=== PATIENT | female | born 2000 | race African-American/Black ===

== ENCOUNTER 2020-09-09 11:10 | Emergency (ER) | payer OTHER, SELFPAY ==
[2020-09-09] VITALS (9 sets, daily range): BP systolic 102–130; BP diastolic 55–73; PULSE 59–92; RESP 18; TEMP 36.8; O2SAT 96–100; BMI 27.4
--- NOTE | 2020-09-09 11:12 | ED.GENADULT ---
HPI - General Adult General Chief complaint: Abdominal Pain Stated complaint: abdominal pain right side for 1 week Time Seen by Provider: 09/09/20 11:12 History of Present Illness HPI narrative: 20-year-old woman with no significant medical history presents with a week of right upper quadrant abdominal pain. She reports no fevers, no vomiting, no diarrhea or change to the color of her stools. She states that the pain is intermittent, does not seem to be related to food in any way and when she has waves of severe pain she has trouble taking a deep breath or moving. She is. For the pain will naya and it is just achy sore. LMP was on 09/03 and was normal. She reports no vaginal discharge or dysuria. No deep pelvic pain. Related Data Allergies Allergy/AdvReac Type Severity Reaction Status Date / Time No Known Drug Allergies Allergy Verified 09/09/20 11:23 Review of Systems Review of Systems Narrative: Remainder of review of systems including constitutional, ENT, cardiovascular, respiratory, GI, , musculoskeletal, skin, neurologic and psychiatric systems reviewed and are unremarkable except as noted in HPI. Patient History Medical History Healthy adult Social History Smoking Status: Never smoker Exam Narrative Exam Narrative: General: Healthy appearing, in no acute distress. Able to give a complete and coherent history. Well-nourished well-developed HEENT: Moist mucous membranes, normal sclera with reactive pupils, Neck: No JVD, supple Respiratory: Lungs are clear to auscultation, no wheezing no rales no rhonchi. Full and symmetrical air movement Cardiac: Regular rate and rhythm no murmurs no bruits Abdomen: Soft, mildly tender in the right upper quadrant without rebound or guarding, good bowel tones, no flank pain Skin: Warm and dry, no rashes Neurologic: Grossly neurologically intact with no obvious asymmetries or abnormalities Extremities: No trauma, well perfused Psych: Cooperative, appropriate insight and affect Initial Vital Signs Initial Vital Signs: Vital Signs Temperature 98.2 F 09/09/20 11:20 Pulse Rate 92 H 09/09/20 11:20 Respiratory Rate 18 09/09/20 11:20 Blood Pressure 130/73 09/09/20 11:20 Pulse Oximetry 98 09/09/20 11:20 Course Orders Ordered: ED Orders 09/09/20 11:35 Complete Blood Count AUTO DIFF Stat Comprehensive Metabolic Panel Stat Lipase Stat 09/09/20 12:08 CT chest abd pel w con Stat Discontinued Medications Magnesium Citrate (Magnesium Citrate 300 Ml Solution) 300 ml PO NOW ONE Stop: 09/09/20 15:05 Last Admin: 09/09/20 15:18 Dose: 300 ml Documented by: LALITA Vital Signs Vital signs: Vital Signs - 8 hr 09/09/20 11:20 09/09/20 12:14 09/09/20 12:30 Temperature 98.2 F Pulse Rate 92 H 83 61 Respiratory Rate 18 Blood Pressure 130/73 Pulse Oximetry 98 96 99 09/09/20 13:00 09/09/20 13:30 09/09/20 13:49 Temperature Pulse Rate 71 59 L 62 Respiratory Rate Blood Pressure 108/55 L Pulse Oximetry 100 100 99 09/09/20 14:00 09/09/20 14:30 09/09/20 15:00 Temperature Pulse Rate 59 L 67 64 Respiratory Rate Blood Pressure 103/57 L 102/60 104/57 L Pulse Oximetry 99 98 100 Medical Decision Making Medical Records Medical records reviewed: Yes I reviewed the patient's medical records. Lab Data Lab results reviewed: Yes I reviewed the patient's lab results. Result diagrams: 09/09/20 11:35 09/09/20 11:35 Labs: Lab Results 09/09/20 09/09/20 Range/Units 11:35 11:35 WBC 7.1 (4.5-11.0) X10^3/uL RBC 4.16 (4.0-5.2) X10^6/uL Hgb 12.7 (12.0-16.0) g/dL Hct 37.8 (36-46) % MCV 90.9 (80-100) fL MCH 30.5 (26-34) PG MCHC 33.6 (30-36) % RDW 12.8 (11.6-14.8) % Plt Count 240 (150-400) X10^3/uL Neut % (Auto) 60.8 (50-75) % Lymph % (Auto) 31.1 (25-40) % [place] % (Auto) 6.0 (3-14) % Eos % (Auto) 1.5 L (2-4) % Baso % (Auto) 0.6 (0-2) % Neut # (Auto) 4300 (1526-0460) /uL Lymph # (Auto) 2200 (0521-6860) /uL [place] # (Auto) 400 (0-900) /uL Eos # (Auto) 100 (0-450) /uL Baso # (Auto) 0 (0-100) /uL Sodium 137 (137-145) mmol/L Potassium 4.0 (3.4-5.1) mmol/L Chloride 106 (98-107) mmol/L Carbon Dioxide 26 (22-32) mmol/L BUN 14 (7-17) mg/dL Creatinine 0.69 (0.52-1.04) mg/dL Estimated GFR > 60.0 (>60) mL/min BUN/Creatinine Ratio 20.3 (6-22) Glucose 92 (70-100) mg/dL Calcium 9.5 (8.4-10.2) mg/dL Total Bilirubin 0.8 (0.2-1.3) mg/dL AST 23 (14-36) IU/L ALT 16 (<35) IU/L Alkaline Phosphatase 68 (38-126) U/L Total Protein 7.9 (6.3-8.2) g/dL Albumin 4.4 (3.5-5.0) g/dL Globulin 3.5 (1.7-4.1) g/dL Albumin/Globulin Ratio 1.3 (1.0-2.8) Lipase 41 (23-300) U/L Point of Care Testing Test Results Negative Urine Dip Bedside Urine Glucose Negative Bedside Urine Bilirubin - Negative Bedside Urine Ketone - Negative Urine Specific [place] 1.025 Bedside Urine Occult Blood - Negative Bedside Urine pH 6.0 Bedside Urine Protein - Negative Bedside Urine Urobilinogen - Negative Bedside Urine Nitrite - Negative Bedside Urine Leukocytes - Negative Esterase Point of care testing: Point of Care Testing Test Results Negative Urine Dip Bedside Urine Glucose Negative Bedside Urine Bilirubin - Negative Bedside Urine Ketone - Negative Urine Specific [place] 1.025 Bedside Urine Occult Blood - Negative Bedside Urine pH 6.0 Bedside Urine Protein - Negative Bedside Urine Urobilinogen - Negative Bedside Urine Nitrite - Negative Bedside Urine Leukocytes - Negative Esterase Imaging Data Ultrasound and x-ray 08/30/2020 Radhika Gen: Radiologist's Impression: Chest x-ray: No acute cardiopulmonary disease Focused abdominal ultrasound: No evidence of cholelithiasis or cholecystitis. Mild nonspecific pelvocaliectasis of the right renal collecting system MDM Narrative Medical decision making narrative: Workup from Radhika Dinero on August 30 is reviewed. Labs chest x-ray and ultrasound were unrevealing. Given the fact that her pain has persisted and resulted in a 2nd emergency room visit will moved to CT scan of the abdomen. Discharge Plan Departure Patient Disposition: Home Clinical Impression: Abdominal pain Qualifiers: Abdominal location: right upper quadrant Qualified Code(s): R10.11 - Right upper quadrant pain Instructions: DI for Abdominal Pain-Adult Activity Restrictions/Additional Instructions: Thank you for coming in today Your workup was entirely reassuring. Your blood work was normal and the CT scan of your chest, abdomen and pelvis did not show any evidence of pneumonia, gallbladder abnormalities, pancreatitis, kidney abnormalities, bowel obstructions, abnormal pelvic findings or other life-threatening findings. The CT scan does have a moderate amount of stool in it and it may be that constipation is a part of your recurrent abdominal pain. I am going to suggest that you drink a bottle of magnesium citrate and see if clearing out your bowels helps relieve some of your symptoms. If it does not, the next step in your workup will be to follow-up with your primary care physician. You may benefit from further evaluation of your gallbladder with an outpatient nuclear medicine study (HIDA scan) to evaluate the function of your gallbladder. If you have new or worsening symptoms, please feel free to return to the emergency department for further evaluation.
[2020-09-09 11:46] LABS: Add Manual Diff / Slide Review NO; Basophils Absolute Auto 0 /uL (0-100); Basophils Percent Auto 0.6 % (0-2); Eosinophils Absolute Auto 100 /uL (0-450); Eosinophils Percent Auto 1.5 % (2-4); Hematocrit 37.8 % (36-46); Hemoglobin 12.7 g/dL (12.0-16.0); Lymphocytes Absolute Auto 2200 /uL (1100-4500); Lymphocytes Percent Auto 31.1 % (25-40); Mean Corpuscular HGB Conc 33.6 % (30-36); Mean Corpuscular Hemoglobin 30.5 PG (26-34); Mean Corpuscular Volume 90.9 fL (80-100); Monocytes Absolute Auto 400 /uL (0-900); Neutrophils Absolute Auto 4300 /uL (1500-7000); Neutrophils Percent Auto 60.8 % (50-75); Platelet Count 240 X10^3/uL (150-400); Red Blood Cell Count 4.16 X10^6/uL (4.0-5.2); Red Cell Distribution Width 12.8 % (11.6-14.8); White Blood Cell Count 7.1 X10^3/uL (4.5-11.0)
[2020-09-09 12:00] LABS: Alanine Aminotransferase 16 IU/L (<35); Albumin 4.4 g/dL (3.5-5.0); Albumin Globulin Ratio 1.3 (1.0-2.8); Alkaline Phosphatase 68 U/L (38-126); Aspartate Aminotransferase 23 IU/L (14-36); BUN Creatinine Ratio 20.3 (6-22); Bilirubin Total 0.8 mg/dL (0.2-1.3); Blood Urea Nitrogen 14 mg/dL (7-17); Calcium 9.5 mg/dL (8.4-10.2); Carbon Dioxide 26 mmol/L (22-32); Chloride 106 mmol/L (98-107); Estimated Glomerular Filt Rate > 60.0 mL/min (>60); Globulin 3.5 g/dL (1.7-4.1); Glucose 92 mg/dL (70-100); HEMOLYSIS < 15 (0-50); Lipase 41 U/L (23-300); Sodium 137 mmol/L (137-145); Total Protein 7.9 g/dL (6.3-8.2)
--- NOTE | 2020-09-09 12:08 | DI.CT.S_ITS ---
PROCEDURE: CT CHEST ABD PEL W CON INDICATIONS: RUQ abdominal pain TECHNIQUE: After the administration of intravenous contrast, 5 mm thick sections acquired from the lung apices to the symphysis. 5 mm coronal and sagittal reformats were performed, with additional 7 mm MIP reformats through the lungs. For radiation dose reduction, the following was used: automated exposure control, adjustment of mA and/or kV according to patient size. COMPARISON: None. FINDINGS: Image quality: Excellent. CHEST: Lungs and pleura: No acute airspace opacities. No pleural effusions or pneumothorax. Central and peripheral airways appear patent and normal in caliber. Mediastinum: Heart size is normal. No pericardial effusion. No mediastinal or hilar adenopathy by size criteria. Thoracic aorta and central pulmonary arteries are normal in size. Esophagus is normal in caliber. No hiatal hernia. Chest wall: No axillary or supraclavicular adenopathy by size criteria. Thyroid gland demonstrates no significant abnormality. ABDOMEN: Solid organs: Liver is normal in size and enhancement. Gallbladder wall is not thickened. Biliary system is non dilated. Pancreas enhances normally. Spleen is normal in size and enhancement. No adrenal nodules. Kidneys demonstrate normal size and enhancement, without hydronephrosis. Peritoneum and bowel: Bowel loops demonstrate normal wall thickness and caliber. No free fluid or air. Nodes and vessels: No retroperitoneal or mesenteric adenopathy by size criteria. Aorta and inferior vena cava are normal in size. Miscellaneous: A mild periumbilical hernia is seen, containing fat. PELVIS: Genitourinary: Bladder wall thickness is normal. The uterus appears normal for age. No adnexal masses are seen. Miscellaneous: No inguinal hernias or adenopathy. Bones: No suspicious bony lesions. No vertebral body compression fractures. IMPRESSION: No imaging explanation is found for this patient's presenting symptoms. No significant gallbladder abnormality is seen by CT. There is no biliary dilatation. Normal appearing right kidney, without hydronephrosis. If it would be helpful for clinical management decision making, please consider a dedicated right upper quadrant ultrasound for further evaluation. Incidental note is made of: Fat containing periumbilical hernia Dictated by: Johny Roberson M.D. on 09/09/2020 at 12:01 Approved by: Johny Roberson M.D. on 09/09/2020 at 12:04
--- NOTE | 2020-09-09 12:49 | PC.NURSE ---
patient returned from ct. research technologist reports mild nausea after contrast. Patient reports no nausea now.
[2020-09-09] MEDS: MAGNESIUM CITRATE 300 ML SOLUTION PO (15:18)
== END 2020-09-09 15:22 | disposition home or self-care (01) ==
PROVIDERS: Emergency Provider Emergency Medicine
DX: R10.11 Right upper quadrant pain (principal)
CPT/HCPCS: 36415; 71260; 74177; 80053; 81003; 81025; 83690; 85025; 99283; 99284; Q9967

== ENCOUNTER → 2021-11-14 14:28 | Outpatient (CLI) | payer OTHER, SELFPAY ==
--- NOTE | 2021-11-14 14:30 | DI.US.S_ITS ---
PROCEDURE: US ABDOMEN COMPLETE INDICATIONS: RUQ PAIN TECHNIQUE: Real-time scanning was performed of the abdominal and retroperitoneal organs, with image documentation. COMPARISON: [facility], CT, CT CHEST ABD PEL W CON, 09/09/2020, 12:32. Outside Film, US, US ABDOMEN LIMITED, 08/30/2020, 22:13. FINDINGS: Liver: Liver is normal in size and homogeneous in echotexture. Gallbladder: No findings of gallstones or sludge are seen. The gallbladder wall is not thickened, measuring 3 mm or less. No specific pericholecystic fluid is seen. The sonographic [place] sign is negative. Biliary ducts: Intrahepatic bile ducts are non-dilated. Extrahepatic bile duct caliber measures 3 mm. Normal is 6-7 mm or less in diameter, or 10 mm or less post-cholecystectomy. Pancreas: Visualized portions of the pancreas are sonographically normal. Spleen: Spleen is normal in size and homogeneous in echotexture. Kidneys: Kidneys are normal in size and echotexture. Right kidney measures 11.3 cm long; left kidney measures 9.9 cm long. No hydronephrosis or nephrolithiasis. No solid masses. Aorta: Visualized aorta is normal in caliber at less than 3 cm. [place]li[place]: Not seen, obscured by overlying bowel gas. IVC: Intrahepatic inferior vena cava is patent. Miscellaneous: No free abdominal fluid. IMPRESSION: The gallbladder demonstrates a normal sonographic appearance. No biliary dilatation is seen. Dictated by: Johny Roberson M.D. on 11/14/2021 at 14:45 Approved by: Johny Roberson M.D. on 11/14/2021 at 14:47
== END ==
PROVIDERS: PCP Student in an Organized Health Care Education/Training Program; Referring Provider Student in an Organized Health Care Education/Training Program; Visit Provider Student in an Organized Health Care Education/Training Program
DX: R10.11 Right upper quadrant pain (principal)
CPT/HCPCS: 76700